=== PATIENT | male | born 1950 | race Caucasian/White ===

== ENCOUNTER 2016-07-08 19:20 | Inpatient (IN) ==
[2016-07-08 20:13] VITALS: BMI 26.2
[2016-07-08] MEDS ORDERED: ZOFRAN 4 MG/2 ML IVP PRN (23:07)
[2016-07-08] MEDS ORDERED: ULTRAM PO PRN (23:27)
[2016-07-08] MEDS ORDERED: HUMALOG SUBCUT PRN (23:29)
[2016-07-08] MEDS ORDERED: IMODIUM PO PRN (23:41)
[2016-07-09] MEDS ORDERED: ZETIA ONE (00:04)
[2016-07-09] MEDS ORDERED: RELAFEN ONE (00:06)
[2016-07-09] MEDS: LANTUS SUBCUT SCH ×2 (00:09→20:48)
[2016-07-09] MEDS ORDERED: RELAFEN PO SCH (08:00)
[2016-07-09] MEDS: ASPIRIN CHEWABLE PO SCH (08:34)
[2016-07-09] MEDS: RANEXA PO SCH ×2 (08:35→20:47)
[2016-07-09] MEDS: COZAAR PO SCH (08:39)
[2016-07-09] MEDS: LOPRESSOR PO SCH (08:39)
[2016-07-09] MEDS: LOVENOX SUBCUT SCH (08:40)
[2016-07-09] MEDS: MULTIVITAMIN PO SCH (08:40)
[2016-07-09] MEDS: RELAFEN PO SCH ×2 (08:41→17:20)
[2016-07-09] MEDS: HYDROCHLOROTHIAZIDE PO SCH (08:42)
[2016-07-09] MEDS: INVANZ 1 GM in SODIUM CHLORIDE 100 ML IV SCH (08:50)
--- NOTE | 2016-07-09 08:55 | DI ---
EXAM: Single view of the chest. History: PICC placement. Comparison: Chest radiograph 06/30/2016 Findings: Heart size is within normal limits. Sternotomy wires. Left PICC seen with tip at the ca voatrial junction. No pneumothorax. No consolidation. No pleural fluid. No acute osseous abnorma lities. Impression: No acute cardiopulmonary process. Left PICC with no pneumothorax.
[2016-07-09] MEDS ORDERED: TESSALON PERLES PO SCH (09:00)
--- NOTE | 2016-07-09 10:26 | RS.OTINEVL ---
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 Home Environment: House, Stairs (few) Medical History: Diabetes Medical History Comments:: MS, DMII, CABG 1999, HTN, Peripheral neuropathy, OA, Endocrine, cataracts. Surgical History Comments:: Surgery to buttocks area. Subjective Information/ Patient Comments:: Pt reports he had surgery in [place] to his buttocks. He reports he is a very active sharlene. - Level of function Prior to this admission, the patient could do the following:: Independent Selfcare, Independent ADL's, Independent Ambulation, Perform Manager Instrumentation/ Cooking, Drive, Participated in Social Activities Outside home, Volunteer/Work Abilities prior to this admission: Independent with all ADLS, and does not use an assistive device. Current Level of Function: Partially Dependent Comments: Pt has fatigue and weakness from the Multiple Sclerosis. Current Equipment Used at Home: glucometer Pain Assessment - Pain Pain Score: 0 Interventions - Objective Patient Orientation: Person, Place, Time, Situation Current Interventions: IV's Observation: Pt is weak and fatigues quickly with activity. Interventions - ROM Right Upper Extremity AROM: WFL's Left Upper Extremity AROM: WFL's - Strength Right Upper Extremity Strength: Mild Weakness Left Upper Extremity Strength: Mild Weakness - Sensation Right Upper Extremity Sensation: Intact/Normal Left Upper Extremity Sensation: Intact/Normal Balance - Sitting Balance Static Sitting Balance: Good Dynamic Sitting Balance: Good - Standing Balance Static Standing Balance: Fair Dynamic Standing Balance: Fair - Comments Balance Assessment Comments: Patient has mild impaired balance. ADL Skills - Self Feeding Self Feeding: Independent - Grooming Grooming: Independent - Bathing Bathing UE: Independent Bathing LE: CGA, Min Assist - Dressing Dressing UE: Independent Dressing LE: Min Assist - Toilet Management Toileting Management: Independent Functional Mobility - Bed Mobility Rolling R/L: Independent Scooting: Independent Supine to Sit: Independent Sit to Supine: Independent - Transfers Sit to Stand: CGA Stand to Sit: Independent Stand Pivot Transfers: CGA - Ambulation Weight Bearing Status: FWB Assistive Device Used: No Assistive Device Assistance needed with Ambulation: CGA - Safety Awareness Safety Awareness: Good Additional Treatment Performed - Time with patient Total treatment time: 25 Activities Patient Interests:: Watching Television Patient Education Patient Education: Education of diagnosis, Home Exercise Program, Education of Plan of Care Teaching Recipient: Patient Teaching Methods: Discussion Assessment Problem List:: Decreased level of function, Requires training/education, Decreased safety/Risk of falls, Weakness Rehab Potential: Good Further Therapy Indicated?: Yes Comments: Patient has fatigue and weakness from the MS. Patient has been in bed trying to get the wounds healed and has become weaker. Short Term Goals - Goals GOAL 1: Pt to increase standing activity to 20 min. to increase standing ADLS. Goal to be met by: 07/16/16 GOAL 2: Pt to be educated with Energy conservation techniques. Goal to be met by: 07/16/16 GOAL 3: Pt to increase BUE strength to 4/5 Goal to be met by: 07/16/16 Alf Goals GOAL 1: Pt to increase his standing activity to 25-30 min. to increase I of ADLS. Goal to be met by: 07/23/16 GOAL 2: Pt to be independent with HEP. Goal to be met by: 07/23/16 GOAL 3: Pt to increase BUE strength to 5/5. Goal to be met by: 07/23/16 Plan Plan of Care: Therapeutic EX, Neuromuscular Re-Educ, Therapeutic Activity, Self- Care/Home Management Frequency of Treatment: 1-2 X day, as tolerated Duration of Treatment: 2 Weeks Anticipated Discharge Destination: Home
[2016-07-09] MEDS: MYLICON PO SCH ×4 (11:14→20:48)
[2016-07-09] MEDS: HUMALOG SUBCUT PRN (16:51)
[2016-07-09] MEDS: VITAMIN C PO SCH (20:47)
[2016-07-09] MEDS: ZINC-220 PO SCH (20:47)
[2016-07-09] MEDS: ZETIA PO SCH (20:47)
[2016-07-10 04:49] LABS: BASOPHILS # (AUTO) 0.1 K/uL (0-0.2); BASOPHILS % (AUTO) 0.9 % (0.0-3.0); EOSINOPHILS # (AUTO) 0.3 K/ul (0.0-0.7); EOSINOPHILS % (AUTO) 3.7 % (0.0-7.0); HEMATOCRIT 29.8 % (42.0-52.0); HEMOGLOBIN 10.2 g/dl (14.0-18.0); IMMATURE GRANULOCYTE % (AUTO) 4.4 % (0.0-5.0); LYMPHOCYTES # (AUTO) 1.7 K/uL (0.60-3.4); LYMPHOCYTES % (AUTO) 19.4 (10.0-50.0); MEAN CORPUSCULAR HEMOGLOBIN 30.6 pg (27.0-31.0); MEAN CORPUSCULAR HGB CONC 34.2 (31.8-35.4); MEAN CORPUSCULAR VOLUME 89.5 fl (80.0-94.0); MONOCYTES # (AUTO) 0.9 K/uL (0.4-2.0); MONOCYTES % (AUTO) 10.6 (0-10); NEUTROPHILS # (AUTO) 5.4 K/ul (2.0-6.9); PLATELET COUNT 384 10^3/uL (140-440); RED BLOOD COUNT 3.33 10^6/ul (4.70-6.10); WHITE BLOOD COUNT 8.85 K/ul (4.2-10.2)
[2016-07-10 05:15] LABS: ALBUMIN 2.5 g/dL (3.4-5.0); ALBUMIN/GLOBULIN RATIO 0.68; ANION GAP 11.9; BILIRUBIN,TOTAL 0.21 mg/dL (0.00-1.20); BUN/CREATININE RATIO 23.52; CALCIUM 9.1 mg/dL (8.2-10.2); CHOL/HDL RATIO 6.4 (4.5-6.4); CREATININE 1.02 mg/dL (0.60-1.10); POTASSIUM 3.9 mmol/L (3.5-5.1); TOTAL PROTEIN 6.2 g/dL (5.8-8.1)
[2016-07-10] MEDS: INVANZ 1 GM in SODIUM CHLORIDE 100 ML IV SCH (09:13)
[2016-07-10] MEDS: LOVENOX SUBCUT SCH (09:13)
[2016-07-10] MEDS: RELAFEN PO SCH ×2 (09:14→17:08)
[2016-07-10] MEDS: ASPIRIN CHEWABLE PO SCH (09:14)
[2016-07-10] MEDS: RANEXA PO SCH ×2 (09:14→20:56)
[2016-07-10] MEDS: COZAAR PO SCH (09:15)
[2016-07-10] MEDS: HYDROCHLOROTHIAZIDE PO SCH (09:15)
[2016-07-10] MEDS: VITAMIN C PO SCH ×2 (09:15→20:56)
[2016-07-10] MEDS: ZINC-220 PO SCH ×2 (09:15→20:56)
[2016-07-10] MEDS: LOPRESSOR PO SCH (09:15)
[2016-07-10] MEDS: MYLICON PO SCH ×4 (09:16→20:56)
[2016-07-10] MEDS: MULTIVITAMIN PO SCH (09:16)
[2016-07-10] MEDS: ZETIA PO SCH (09:31)
--- NOTE | 2016-07-10 10:59 | PN ---
DATE OF VISIT: 07/09/16 The patient today is alert and in no distress with a good color. He had no specific complaints. When I did see him at noon or close to 1 p.m., the patient told me that his dressing had not been changed or packing. So I contacted the nurse and discussed the case with Brandie, the nurse cargo supervisor. I told her that the patient's dressing has to be changed three times a day as ordered at the time of discharge. I would like to have a picture of the cavity after the packing was removed and it should be repacked with 1/4 inch Iodoform. I felt that the position would be better if the patient is in a prone position with his butt elevated with at least two to three pillows underneath his abdomen. VITAL SIGNS: Temperature at 5:26 a.m. was 96.6, pulse 54, blood pressure 151/63 , respiratory rate 16, oxygen saturation 94 at room air. LUNGS: Clear. HEART: Normal sinus rhythm and unchanged from yesterday. Procalcitonin 0.09. Will order a CBC and CMP tomorrow, as well as urinalysis. [facility]
--- NOTE | 2016-07-10 11:15 | RS.PTINEVL ---
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 Home Environment: House, Stairs (few) Medical History: Diabetes Medical History Comments:: MS, DMII, CABG 1999, HTN, Peripheral neuropathy, OA, Endocrine, cataracts. Surgical History Comments:: Surgery to buttocks area. Subjective Information/ Patient Comments:: Patient states he recently had rehab for leg strengthening due to a flare up of MS. States he has been ambulating to the bathroom by himself. States he has been cautious with mobility. - Level of function Prior to this admission, the patient could do the following:: Independent Selfcare, Independent ADL's, Independent Ambulation, Perform Threading Machine Feeder Automatic/ Cooking, Drive, Participated in Social Activities Outside home, Volunteer/Work Current Equipment Used at Home: glucometer Interventions - Objective Patient Orientation: Person, Place, Time, Situation Current Interventions: IV's Range of Motion - ROM Right Upper Extremity AROM: WFL's Left Upper Extremity AROM: WFL's Right Lower Extremity AROM: WFL's Left Lower Extremity AROM: WFL's Muscle Strength - Muscle Strength Right Lower Extremity Strength: Mild Weakness Left Lower Extremity Strength: Mild Weakness Comments:: No functional deficits with LE weakness. Balance - Sitting Balance and Reactions Static Sitting Balance: Good Dynamic Sitting Balance: Good - Standing Balance and Reactions Static Standing Balance: Good (-) Dynamic Standing Balance: Good (-) Functional Mobility - Bed Mobility Supine to Sit: Independent Sit to Supine: Independent - Transfers Sit to Stand: Independent Stand to Sit: Independent Stand Pivot Transfers: Independent, Supervision, 1 person assist - Safety Awareness Safety Awareness: Good Ambulation - Ambulation Weight Bearing Status: FWB Assistive Device Used: No Assistive Device Orthotic/Prosthetic Device: No Distance: 150 feet Assistance needed with Ambulation: Supervision Quality of Ambulation: Patient demonstrates consistent clearing of both feet. Demonstrates a slight wide base of support. Exhibits good heel strike and toe off. Patient ambulated in non-skid socks and demonstrated no loss of balance or unsteadiness. Treatment time - Time with patient Total treatment time: 16 (mins) Assessment - Assessment Further Therapy Indicated?: No Comments: Patient is up ad jadyn in the room to go to the bathroom. He is independent with bed mobility and transfers. He demonstrates high functioning gait that does not required skilled assistance. He will benefit from ambulation with nursing or family to maintain his level of function. Plan Duration of Treatment: One Time Treatment Anticipated Discharge Destination: Home
[2016-07-10] MEDS: HUMALOG SUBCUT PRN ×2 (11:50→17:09)
[2016-07-10] MEDS: LANTUS SUBCUT SCH (20:56)
[2016-07-11] MEDS: LOVENOX SUBCUT SCH (08:37)
[2016-07-11] MEDS: INVANZ 1 GM in SODIUM CHLORIDE 100 ML IV SCH (08:37)
[2016-07-11] MEDS: MULTIVITAMIN PO SCH (08:38)
[2016-07-11] MEDS: ZETIA PO SCH (08:38)
[2016-07-11] MEDS: RANEXA PO SCH ×2 (08:38→21:19)
[2016-07-11] MEDS: HYDROCHLOROTHIAZIDE PO SCH (08:38)
[2016-07-11] MEDS: VITAMIN C PO SCH ×2 (08:38→21:20)
[2016-07-11] MEDS: COZAAR PO SCH (08:38)
[2016-07-11] MEDS: ZINC-220 PO SCH ×2 (08:38→21:20)
[2016-07-11] MEDS: MYLICON PO SCH ×4 (08:39→21:20)
[2016-07-11] MEDS: ASPIRIN CHEWABLE PO SCH (08:39)
[2016-07-11] MEDS: LOPRESSOR PO SCH (08:39)
--- NOTE | 2016-07-11 11:13 | HP ---
CHIEF COMPLAINT: The patient was admitted 07/08/16 from [facility] as a Transitional Care patient. SOURCE OF HISTORY: Records from [facility] and patient. 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 He rides horses and last fall of 2015 he developed a lesion or an area in the right upper posterior thigh bordering the buttock that spontaneously drained and resolved. The patient about two months ago developed an area in the coccyx that was raised, tender and painful that drains continuously a day or two prior to his doctor's appointment for the problem. No medication or surgical manipulation was done. The area seemed to have healed until 06/28/2016 and by 06/30/16 the patient developed fever, shaking chills and prompting a visit to the emergency room. Incision and drainage was done at the emergency room prior to admission, plus culture. The patient on 07/01/2016 was seen by a surgeon and further incision and drainage was done in the area of the coccyx. He developed another area that was red and raised and tender on 07/02/2016 in the left lower buttock. This also was then incised and drained by the surgeon. The areas were packed with 1/2 inch Iodoform. The patient did receive Vancomycin with Zosyn. The patient upon discharge however was placed on Ertapenem. This patient is admitted to this facility for continued IV medication and also change of dressing ordered three times a day including the packing. PAST PERSONAL HISTORY: The patient had coronary artery disease and did undergo coronary bypass in 1998. The patient during that time was found to have diabetes and had been diabetic since. He had been on Insulin about 10 years now. He had no other operations. He had been taking Nabumetone for some time because of swelling and pain in the fingers and hands, as well as joints, meaning elbow and knees. He had cataract extractions with implants. FAMILY HISTORY: Father had diabetes mellitus, as well sister and brother. The patient had a very significant malignancy history in the family consisting of brother who of multiple myeloma, probably. Sister with pancreatic carcinoma and two sisters with breast carcinoma. He has a brother that seemingly has no malignancies uncovered. He is the youngest of the family. 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 His of lung carcinoma and was a smoker. He never did smoke and only used alcoholic beverages very occasionally. He had a colonoscopy about 5-7 years ago and endoscopy more than 10 years ago. MEDICATIONS: Prior to admission to this facility. Multivitamin capsule one daily Tramadol 50 mg tablet every four hours prn Probiotic on capsule twice a day Relafen 750 mg twice a day Tessalon Perles 100 mg capsule three times a day Ranexa 500 mg tablet twice daily Cozaar 100 mg tablet daily Insulin Lispro/Humalog 100 units per cc, two to four times a day Hydrochlorothiazide 25 mg daily Ertapenem 1 gram daily IV Lovenox 40 mg daily Lopressor 25 mg daily Lantus 22 units subcutaneously at bedtime Mylicon 80 chewable pc and hs, instead of ac and hs Aspirin 81 mg daily Zofran 4 mg IV every 6 hours prn Loperamide 2 mg capsule every 4 hours prn Zinc Gluconate 100 mg tablet, 380 mg daily ALLERGIES: Crestor REVIEW OF SYSTEMS: CONSTITUTIONAL: The patient is alert, oriented, afebrile, no chills now and appears well. Not dyspneic, nor tachypneic. LIVESTOCK HAULIER: No headaches, no ataxia, no weakness of the extremities. VISUAL: Denies any double vision, blurred vision or transient loss of vision. AUDITORY: The patient's hearing is good. He denies any pain, tinnitus or drainage. CARDIOVASCULAR: The patient denies any chest pain or chest tightness or chest heaviness. GASTROINTESTINAL: The appetite seemed to have improved and eating about 100% of the meals. GENITOURINARY: Denies any pain, frequency or urgency of urination. The patient denies any change in his bowl habits during this episode. MUSCULOSKELETAL: The patient does experience pain and swelling of the fingers, more so in the morning and also knee pain. INTEGUMENT: The patient does have three areas or cavities in the thigh, left, the border of the buttocks in the right at the lowest portion of the buttocks and then coccyx. Minimal redness and no significant surrounding induration. ENDOCRINE: The patient has no polyuria, polydipsia, although he is diabetic and using Insulin. HEMATOLOGIC: No history of prolonged bleeding. PSYCHIATRIC: Affect is normal. PHYSICAL EXAMINATION: GENERAL: We have a 65 year old male who is alert, oriented times four , not dyspneic, nor tachypneic and appears generally well. He is ambulatory. VITAL SIGNS: On admission at 7:49 p.m. on 07/08/16, temperature 98.2, pulse 64, blood pressure 146/66, respiratory rate 16, oxygen saturation 96 at room air. HEAD: Unremarkable. FACE: Symmetrical and equal with no facial weakness. No remarkable tenderness in the frontal or maxillary sinus areas to palpation under pressure. EYES: Pupils equal/reactive to light about 3 mm in size. Conjunctivae slightly pale. Sclerae not icteric. MOUTH: Unremarkable. THROAT: No inflammation, tumors or exudate. NECK: No masses. No bruit. No tenderness. No venous distention at supine posture. CHEST: Essentially symmetrical and equal with good expansion. No remarkable tenderness. A scar from the median sternotomy. LUNGS: Breath sounds are heard in both sides. No rales or wheezing. HEART: Audible and regular with good tones. No murmurs. ABDOMEN: Flat, soft with no remarkable tenderness. No guarding. Bowel sounds are active. No masses palpable and no bruit. EXTERNAL GENITALIA: Not examined. LOWER EXTREMITIES: Symmetrical and equal with no ankle edema. Anterior tibials are present. No tenderness in the calf muscles. The patient in prone position is noted to have the areas in the left lower buttocks and then right in the lower buttocks, as well as the coccyx packed with 1/4 inch Iodoform with no drainage noted. UPPER EXTREMITIES: Symmetrical and equal. ASSESSMENT: 1. ABSCESS COCCYX INCISED AND DRAINED 2. ABSCESS RIGHT AND LEFT LOWER BUTTOCKS INCISED AND DRAINED 3. FEBRILE CONDITION RESOLVED WITH PROBABLE BACTEREMIA, BUT WITH NEGATIVE CULTURE OF THE WOUND 4. DIABETES MELLITUS INSULIN DEPENDENT FOR 14 YEARS, DIAGNOSED 1998. 5. CORONARY ARTERY DISEASE, STATUS POST BYPASS 1998 6. HISTORY OF MS ON MEDICATION, HELD SINCE 07/01/16 7. PERIPHERAL ARTERIAL DISEASE WITH ABSENT POSTERIOR TIBIALS 8. PAIN IN FINGERS OF BOTH HANDS AND KNEES, PROBABLY DEGENERATIVE JOINT DISEASE 9. HYPERTENSION 10. MODERATE ANEMIA 11. HISTORY OF PREPONDERANT MALIGNANCY IN THE FAMILY, FATHER AND FOUR SIBLINGS MTDD
[2016-07-11] MEDS: HUMALOG SUBCUT PRN ×2 (11:22→18:34)
--- NOTE | 2016-07-11 13:01 | PN ---
DATE OF VISIT: 07/10/16 The patient is alert and oriented times four. Not dyspneic, nor tachypneic with good color and good mobility. This patient has MS, but he has good movement and no muscular aching that he is complaining of. He does complain of joint pains. NECK: No masses, no bruit. LUNGS: Clear to auscultation after several deep breaths. There is fine rales at the left base. This disappears after taking several deep breaths. HEART: Audible and regular with good tones. ABDOMEN: Unremarkable. The area in the buttocks and coccyx has minimal redness at the rim of the cavities. The CBC showed moderate anemia with hemoglobin of 10, hematocrit 29.8, MCV 89.5 and MCH 30.6, immature granulocytes 0.4, but it was high on admission at [facility]. The WBC is normal at 8.85. Electrolytes were normal. CO2 normal. BUN slightly elevated at 24, creatinine 1.02, E GFR 73. Blood sugar fasting 88 , A1C 6.7. Albumin is low at 2.5. Triglycerides 144, cholesterol 153, LDL cholesterol 100, VLDL 29, HDL cholesterol 24, ratio 6.4. Procalcitonin on admission was normal at 0.09. I did inform the patient that I will try to get in touch with the surgeon as to when they would expect to see him at his office and also when did they expect to continue his antibiotic treatment. STAR
[2016-07-11] MEDS: LANTUS SUBCUT SCH (21:20)
[2016-07-12] MEDS: ASPIRIN CHEWABLE PO SCH (08:50)
[2016-07-12] MEDS: VITAMIN C PO SCH ×2 (09:05→20:36)
[2016-07-12] MEDS: COZAAR PO SCH (09:05)
[2016-07-12] MEDS: MULTIVITAMIN PO SCH (09:06)
[2016-07-12] MEDS: LOPRESSOR PO SCH (09:06)
[2016-07-12] MEDS: ZETIA PO SCH (09:06)
[2016-07-12] MEDS: ZINC-220 PO SCH ×2 (09:06→20:35)
[2016-07-12] MEDS: HYDROCHLOROTHIAZIDE PO SCH (09:06)
[2016-07-12] MEDS: MYLICON PO SCH ×4 (09:06→20:36)
[2016-07-12] MEDS: INVANZ 1 GM in SODIUM CHLORIDE 100 ML IV SCH (09:06)
[2016-07-12] MEDS: RANEXA PO SCH ×2 (09:06→20:36)
[2016-07-12] MEDS: LOVENOX SUBCUT SCH (09:07)
[2016-07-12] MEDS: HUMALOG SUBCUT PRN ×2 (11:53→17:32)
[2016-07-12] MEDS: LANTUS SUBCUT SCH (20:36)
[2016-07-13 05:28] LABS: BASOPHILS # (AUTO) 0.1 K/uL (0-0.2); BASOPHILS % (AUTO) 1.1 % (0.0-3.0); EOSINOPHILS # (AUTO) 0.3 K/ul (0.0-0.7); HEMATOCRIT 30.6 % (42.0-52.0); HEMOGLOBIN 10.5 g/dl (14.0-18.0); IMMATURE GRANULOCYTE % (AUTO) 1.8 % (0.0-5.0); LYMPHOCYTES # (AUTO) 1.7 K/uL (0.60-3.4); LYMPHOCYTES % (AUTO) 20.4 (10.0-50.0); MEAN CORPUSCULAR HEMOGLOBIN 30.6 pg (27.0-31.0); MEAN CORPUSCULAR HGB CONC 34.3 (31.8-35.4); MEAN CORPUSCULAR VOLUME 89.2 fl (80.0-94.0); MONOCYTES # (AUTO) 0.8 K/uL (0.4-2.0); NEUTROPHILS # (AUTO) 5.3 K/ul (2.0-6.9); NEUTROPHILS % (AUTO) 63.7; PLATELET COUNT 402 10^3/uL (140-440); RED BLOOD COUNT 3.43 10^6/ul (4.70-6.10); WHITE BLOOD COUNT 8.24 K/ul (4.2-10.2)
[2016-07-13 06:21] LABS: ALBUMIN 3.5 g/dL (3.4-5.0); ALBUMIN/GLOBULIN RATIO 1.13; ANION GAP 9.9; BILIRUBIN,TOTAL 0.4 mg/dL (0.00-1.20); CALCIUM 8.9 mg/dL (8.2-10.2); POTASSIUM 3.9 mmol/L (3.5-5.1); TOTAL PROTEIN 6.6 g/dL (5.8-8.1)
[2016-07-13] MEDS: RANEXA PO SCH ×2 (08:43→21:11)
[2016-07-13] MEDS: HYDROCHLOROTHIAZIDE PO SCH (08:43)
[2016-07-13] MEDS: ASPIRIN CHEWABLE PO SCH (08:43)
[2016-07-13] MEDS: MULTIVITAMIN PO SCH (08:43)
[2016-07-13] MEDS: ZETIA PO SCH (08:43)
[2016-07-13] MEDS: ZINC-220 PO SCH ×2 (08:43→21:11)
[2016-07-13] MEDS: LOPRESSOR PO SCH (08:44)
[2016-07-13] MEDS: LOVENOX SUBCUT SCH (08:44)
[2016-07-13] MEDS: COZAAR PO SCH (08:44)
[2016-07-13] MEDS: MYLICON PO SCH ×4 (08:44→21:11)
[2016-07-13] MEDS: VITAMIN C PO SCH ×2 (08:44→21:11)
[2016-07-13] MEDS: INVANZ 1 GM in SODIUM CHLORIDE 100 ML IV SCH (08:45)
[2016-07-13] MEDS: HUMALOG SUBCUT PRN ×3 (11:57→21:09)
[2016-07-13] MEDS: LANTUS SUBCUT SCH (21:10)
[2016-07-14] MEDS: INVANZ 1 GM in SODIUM CHLORIDE 100 ML IV SCH (08:57)
[2016-07-14] MEDS: ZETIA PO SCH (08:58)
[2016-07-14] MEDS: RANEXA PO SCH ×2 (08:58→21:43)
[2016-07-14] MEDS: MYLICON PO SCH ×4 (08:58→21:43)
[2016-07-14] MEDS: HYDROCHLOROTHIAZIDE PO SCH (08:59)
[2016-07-14] MEDS: MULTIVITAMIN PO SCH (08:59)
[2016-07-14] MEDS: VITAMIN C PO SCH ×2 (08:59→21:43)
[2016-07-14] MEDS: ASPIRIN CHEWABLE PO SCH (08:59)
[2016-07-14] MEDS: ZINC-220 PO SCH ×2 (08:59→21:43)
[2016-07-14] MEDS: LOPRESSOR PO SCH (08:59)
[2016-07-14] MEDS: LOVENOX SUBCUT SCH (08:59)
[2016-07-14] MEDS: COZAAR PO SCH (09:04)
[2016-07-14] MEDS: HUMALOG SUBCUT PRN ×3 (11:38→21:42)
[2016-07-14] MEDS: LANTUS SUBCUT SCH (21:42)
[2016-07-15 04:51] LABS: ALBUMIN 2.9 g/dL (3.4-5.0); ALBUMIN/GLOBULIN RATIO 0.81; ANION GAP 12.4; BILIRUBIN,TOTAL 0.21 mg/dL (0.00-1.20); BUN/CREATININE RATIO 30.47; CALCIUM 9.2 mg/dL (8.2-10.2); CREATININE 1.05 mg/dL (0.60-1.10); POTASSIUM 4.4 mmol/L (3.5-5.1); TOTAL PROTEIN 6.5 g/dL (5.8-8.1)
[2016-07-15] MEDS: MYLICON PO SCH ×4 (08:15→20:35)
[2016-07-15] MEDS: ZETIA PO SCH (08:15)
[2016-07-15] MEDS: INVANZ 1 GM in SODIUM CHLORIDE 100 ML IV SCH (08:15)
[2016-07-15] MEDS: VITAMIN C PO SCH ×2 (08:15→20:35)
[2016-07-15] MEDS: ASPIRIN CHEWABLE PO SCH (08:15)
[2016-07-15] MEDS: ZINC-220 PO SCH ×2 (08:16→20:35)
[2016-07-15] MEDS: RANEXA PO SCH ×2 (08:16→20:35)
[2016-07-15] MEDS: MULTIVITAMIN PO SCH (08:16)
[2016-07-15] MEDS: LOPRESSOR PO SCH (08:17)
[2016-07-15] MEDS: HYDROCHLOROTHIAZIDE PO SCH (08:18)
[2016-07-15] MEDS: COZAAR PO SCH (08:18)
[2016-07-15] MEDS: LOVENOX SUBCUT SCH (08:18)
[2016-07-15] MEDS: HUMALOG SUBCUT PRN ×2 (11:24→17:33)
[2016-07-15] MEDS: LANTUS SUBCUT SCH (20:36)
[2016-07-16] MEDS: INVANZ 1 GM in SODIUM CHLORIDE 100 ML IV SCH (08:47)
[2016-07-16] MEDS: ASPIRIN CHEWABLE PO SCH (08:47)
[2016-07-16] MEDS: RANEXA PO SCH ×2 (08:58→20:46)
[2016-07-16] MEDS: MULTIVITAMIN PO SCH (08:59)
[2016-07-16] MEDS: MYLICON PO SCH ×4 (08:59→20:46)
[2016-07-16] MEDS: ZINC-220 PO SCH ×2 (08:59→20:46)
[2016-07-16] MEDS: VITAMIN C PO SCH ×2 (08:59→20:46)
[2016-07-16] MEDS: ZETIA PO SCH (08:59)
[2016-07-16] MEDS: LOPRESSOR PO SCH (09:00)
[2016-07-16] MEDS: HYDROCHLOROTHIAZIDE PO SCH (09:00)
[2016-07-16] MEDS: LOVENOX SUBCUT SCH (09:01)
[2016-07-16] MEDS: COZAAR PO SCH (09:02)
--- NOTE | 2016-07-16 11:22 | PN ---
DATE OF VISIT: 07/12/2016 The patient is alert and oriented times four and feeling good. He does look good. He had been afebrile throughout his hospital stay after this day. VITAL SIGNS: His temperature of 5:14 p.m. was 97.8, pulse 56, blood pressure 109/63, respiratory rate 20, oxygen saturation on room air 97. LUNGS: Clear to auscultation in both sides. No rales or wheezing. HEART: Audible and regular with good tones. No murmurs. ASSESSMENT: Multiple ulcerations of right and left buttocks, plus coccyx with positive blood culture and he is receiving Ertapenem 1 gram daily. He also gets a change of dressing three times a day. No significant induration around the ulceration. MTDD
--- NOTE | 2016-07-16 11:28 | PN ---
DATE OF VISIT: 07/13/16 The patient is alert and oriented times four. Not dyspneic, nor tachypneic. GENERAL APPEARANCE: Good. VITAL SIGNS: At 5:33 p.m. on 07/13/16 showed a temperature 97.6 oral, pulse 52 , blood pressure 134/62, respiratory rate 18, oxygen saturation 98 at room air. LUNGS: Clear to auscultation in both sides. HEART: Audible and regular with good tones. ABDOMEN: Flat, soft. Bowel sounds are active. The wound was inspected and palpated with sterile gloves. There are no purulent areas now. The induration of the wound edges is minimal. I do think that the patient is doing well. However, the length of the Ertapenem medication is questionable. I need to look at the ID for recommendations. CONDITION: Stable. MTDD
--- NOTE | 2016-07-16 11:35 | PN ---
DATE OF VISIT: 07/14/16 The patient is alert and cheerful. He is in no distress and he had a good color. He has no specific complaints. No significant pain. He had been afebrile ever since he was admitted. VITAL SIGNS: On 07/14/2016 at 5:41 p.m. showed a temperature of 97.8, pulse 64 , blood pressure 138/70, respiratory rate 18, oxygen saturation on room air 97. LUNGS: Clear to auscultation. HEART: Audible and regular with good tones. ABDOMEN: Soft and nontender. The wound was not inspected. I did tell him that I felt like maybe he can go home, but we need to make arrangements for the changes of dressing and IV. He has an appointment with the surgeon on the I & D on 07/23/2016. There are no arrangements made for him to get the medication at home, as well as the packing that he may have to stay here until his day of follow up with the surgeon and infectious disease MDonnie GRAVES
--- NOTE | 2016-07-16 11:44 | PN ---
DATE OF VISIT: 07/15/16 The patient is alert and doing well. No distress with good color and feels good. I did see him about 1 p.m. VITAL SIGNS: During that time available was at 5:26 a.m. with a temperature of 97.3, pulse 51, blood pressure 107/54, respiratory rate 16, oxygen saturation 97 on room air. I did inform him that I had reviewed the records and the infectious disease specialist would like to continue his Ertapenem for about 28 days. This is now day 12 for the medication. He has an appointment to the ID specialist, as well as the surgeon on 07/23/2016. I told him that if he is going home the logistical problem for changing the dressing three times is probably not obtainable and also the IV medication being given daily for 7 days out of 7 days is probably also difficult. I did tell him that I would discuss that with both of the doctors and see what they have to tell me before I would plan on discharging him. If we cannot find an alternative and the plan of follow up on 07/23/2016 would probably be followed through and probably either discharge him after the follow up or before the follow up appointment. I had not had a chance to talk to the doctors today and will try to do that tomorrow morning. STAR
[2016-07-16] MEDS: HUMALOG SUBCUT PRN ×2 (12:13→17:21)
[2016-07-16] MEDS: LANTUS SUBCUT SCH (20:47)
[2016-07-17] MEDS: ZINC-220 PO SCH ×2 (08:02→20:56)
[2016-07-17] MEDS: LOVENOX SUBCUT SCH (08:02)
[2016-07-17] MEDS: VITAMIN C PO SCH ×2 (08:02→20:56)
[2016-07-17] MEDS: ASPIRIN CHEWABLE PO SCH (08:02)
[2016-07-17] MEDS: MULTIVITAMIN PO SCH (08:02)
[2016-07-17] MEDS: ZETIA PO SCH (08:02)
[2016-07-17] MEDS: RANEXA PO SCH ×2 (08:02→20:56)
[2016-07-17] MEDS: INVANZ 1 GM in SODIUM CHLORIDE 100 ML IV SCH (08:03)
[2016-07-17] MEDS: COZAAR PO SCH (08:03)
[2016-07-17] MEDS: HYDROCHLOROTHIAZIDE PO SCH (08:04)
[2016-07-17] MEDS: LOPRESSOR PO SCH (08:04)
[2016-07-17] MEDS: MYLICON PO SCH ×4 (08:13→20:56)
[2016-07-17] MEDS: HUMALOG SUBCUT PRN (10:57)
[2016-07-17] MEDS: LANTUS SUBCUT SCH (20:56)
[2016-07-18] MEDS: COZAAR PO SCH (08:07)
[2016-07-18] MEDS: RANEXA PO SCH ×2 (08:07→20:31)
[2016-07-18] MEDS: LOVENOX SUBCUT SCH (08:07)
[2016-07-18] MEDS: MULTIVITAMIN PO SCH (08:08)
[2016-07-18] MEDS: HYDROCHLOROTHIAZIDE PO SCH (08:08)
[2016-07-18] MEDS: ZETIA PO SCH (08:08)
[2016-07-18] MEDS: ASPIRIN CHEWABLE PO SCH (08:08)
[2016-07-18] MEDS: ZINC-220 PO SCH ×2 (08:08→20:31)
[2016-07-18] MEDS: MYLICON PO SCH ×4 (08:08→20:31)
[2016-07-18] MEDS: VITAMIN C PO SCH ×2 (08:08→20:31)
[2016-07-18] MEDS: LOPRESSOR PO SCH (08:09)
[2016-07-18] MEDS: INVANZ 1 GM in SODIUM CHLORIDE 100 ML IV SCH (08:10)
[2016-07-18] MEDS: HUMALOG SUBCUT PRN ×2 (11:15→21:41)
[2016-07-18] MEDS: LANTUS SUBCUT SCH (20:32)
[2016-07-19] MEDS: VITAMIN C PO SCH ×2 (08:45→20:18)
[2016-07-19] MEDS: COZAAR PO SCH ×2 (08:45→08:50)
[2016-07-19] MEDS: ASPIRIN CHEWABLE PO SCH (08:45)
[2016-07-19] MEDS: MYLICON PO SCH ×4 (08:46→20:18)
[2016-07-19] MEDS: LOPRESSOR PO SCH (08:46)
[2016-07-19] MEDS: LOVENOX SUBCUT SCH (08:46)
[2016-07-19] MEDS: ZETIA PO SCH (08:46)
[2016-07-19] MEDS: MULTIVITAMIN PO SCH (08:46)
[2016-07-19] MEDS: HYDROCHLOROTHIAZIDE PO SCH (08:46)
[2016-07-19] MEDS: INVANZ 1 GM in SODIUM CHLORIDE 100 ML IV SCH (08:46)
[2016-07-19] MEDS: ZINC-220 PO SCH ×2 (08:46→20:18)
[2016-07-19] MEDS: RANEXA PO SCH ×2 (08:46→20:18)
[2016-07-19] MEDS: HUMALOG SUBCUT PRN ×2 (12:04→20:16)
[2016-07-19] MEDS: LANTUS SUBCUT SCH (20:17)
[2016-07-20] MEDS: INVANZ 1 GM in SODIUM CHLORIDE 100 ML IV SCH (08:46)
[2016-07-20] MEDS: LOVENOX SUBCUT SCH (08:49)
[2016-07-20] MEDS: ASPIRIN CHEWABLE PO SCH (08:51)
[2016-07-20] MEDS: RANEXA PO SCH ×2 (08:51→20:30)
[2016-07-20] MEDS: COZAAR PO SCH (08:52)
[2016-07-20] MEDS: HYDROCHLOROTHIAZIDE PO SCH (08:52)
[2016-07-20] MEDS: LOPRESSOR PO SCH (08:52)
[2016-07-20] MEDS: ZETIA PO SCH (08:52)
[2016-07-20] MEDS: ZINC-220 PO SCH ×2 (08:52→20:29)
[2016-07-20] MEDS: VITAMIN C PO SCH ×2 (08:52→20:29)
[2016-07-20] MEDS: MYLICON PO SCH ×4 (08:53→20:29)
[2016-07-20] MEDS: MULTIVITAMIN PO SCH (08:53)
[2016-07-20] MEDS: HUMALOG SUBCUT PRN ×2 (11:04→17:36)
[2016-07-20] MEDS: LANTUS SUBCUT SCH (20:30)
[2016-07-21 07:12] LABS: BASOPHILS # (AUTO) 0.1 K/uL (0-0.2); BASOPHILS % (AUTO) 1.4 % (0.0-3.0); EOSINOPHILS # (AUTO) 0.3 K/ul (0.0-0.7); HEMATOCRIT 34.8 % (42.0-52.0); HEMOGLOBIN 11.8 g/dl (14.0-18.0); IMMATURE GRANULOCYTE % (AUTO) 0.4 % (0.0-5.0); LYMPHOCYTES # (AUTO) 1.8 K/uL (0.60-3.4); LYMPHOCYTES % (AUTO) 32.3 (10.0-50.0); MEAN CORPUSCULAR HEMOGLOBIN 30.2 pg (27.0-31.0); MEAN CORPUSCULAR HGB CONC 33.9 (31.8-35.4); MONOCYTES # (AUTO) 0.6 K/uL (0.4-2.0); MONOCYTES % (AUTO) 11.2 (0-10); NEUTROPHILS # (AUTO) 2.8 K/ul (2.0-6.9); NEUTROPHILS % (AUTO) 49.7; PLATELET COUNT 303 10^3/uL (140-440); RED BLOOD COUNT 3.91 10^6/ul (4.70-6.10); WHITE BLOOD COUNT 5.64 K/ul (4.2-10.2)
[2016-07-21 07:31] LABS: ALBUMIN 3.3 g/dL (3.4-5.0); ALBUMIN/GLOBULIN RATIO 0.85; ANION GAP 10.2; BILIRUBIN,TOTAL 0.42 mg/dL (0.00-1.20); BUN/CREATININE RATIO 23.58; CALCIUM 9.7 mg/dL (8.2-10.2); CREATININE 1.06 mg/dL (0.60-1.10); POTASSIUM 4.2 mmol/L (3.5-5.1); TOTAL PROTEIN 7.2 g/dL (5.8-8.1)
[2016-07-21 07:54] LABS: ESR INTERNAL QC INTERNAL QC VALID
[2016-07-21 07:55] LABS: ERYTHROCYTE SEDIMENTATION RATE 54 mm/hr (0-15)
[2016-07-21] MEDS: LOVENOX SUBCUT SCH (08:50)
[2016-07-21] MEDS: HYDROCHLOROTHIAZIDE PO SCH (08:51)
[2016-07-21] MEDS: MULTIVITAMIN PO SCH (08:51)
[2016-07-21] MEDS: ZINC-220 PO SCH ×2 (08:51→20:43)
[2016-07-21] MEDS: COZAAR PO SCH (08:51)
[2016-07-21] MEDS: RANEXA PO SCH ×2 (08:51→20:44)
[2016-07-21] MEDS: LOPRESSOR PO SCH (08:52)
[2016-07-21] MEDS: INVANZ 1 GM in SODIUM CHLORIDE 100 ML IV SCH (08:52)
[2016-07-21] MEDS: VITAMIN C PO SCH ×2 (08:52→20:44)
[2016-07-21] MEDS: MYLICON PO SCH ×4 (08:52→20:43)
[2016-07-21] MEDS: ASPIRIN CHEWABLE PO SCH (08:52)
[2016-07-21] MEDS: ZETIA PO SCH (08:52)
[2016-07-21] MEDS: HUMALOG SUBCUT PRN ×2 (11:46→17:16)
[2016-07-21] MEDS: LANTUS SUBCUT SCH (20:45)
[2016-07-22] MEDS: INVANZ 1 GM in SODIUM CHLORIDE 100 ML IV SCH (08:18)
[2016-07-22] MEDS: ASPIRIN CHEWABLE PO SCH (08:41)
[2016-07-22] MEDS: HYDROCHLOROTHIAZIDE PO SCH (08:42)
[2016-07-22] MEDS: COZAAR PO SCH (08:42)
[2016-07-22] MEDS: LOVENOX SUBCUT SCH (08:43)
[2016-07-22] MEDS: LOPRESSOR PO SCH (08:43)
[2016-07-22] MEDS: VITAMIN C PO SCH ×2 (08:44→21:08)
[2016-07-22] MEDS: ZETIA PO SCH (08:44)
[2016-07-22] MEDS: RANEXA PO SCH ×2 (08:44→21:07)
[2016-07-22] MEDS: MYLICON PO SCH ×4 (08:44→21:07)
[2016-07-22] MEDS: MULTIVITAMIN PO SCH (08:44)
[2016-07-22] MEDS: ZINC-220 PO SCH ×2 (08:45→21:08)
[2016-07-22] MEDS: HUMALOG SUBCUT PRN ×2 (11:07→17:28)
[2016-07-22] MEDS: LANTUS SUBCUT SCH (21:08)
[2016-07-23 04:30] VITALS: BP 114/62; TEMP 98
[2016-07-23] MEDS ORDERED: INVANZ 1 GM in SODIUM CHLORIDE 100 ML IV SCH (06:00)
[2016-07-23] MEDS: MULTIVITAMIN PO SCH (08:37)
[2016-07-23] MEDS: LOVENOX SUBCUT SCH (08:37)
[2016-07-23] MEDS: LOPRESSOR PO SCH (08:38)
[2016-07-23] MEDS: MYLICON PO SCH (08:38)
[2016-07-23] MEDS: HYDROCHLOROTHIAZIDE PO SCH (08:38)
[2016-07-23] MEDS: VITAMIN C PO SCH (08:38)
[2016-07-23] MEDS: ASPIRIN CHEWABLE PO SCH (08:38)
[2016-07-23] MEDS: COZAAR PO SCH (08:38)
[2016-07-23] MEDS: RANEXA PO SCH (08:38)
[2016-07-23] MEDS: ZETIA PO SCH (08:38)
[2016-07-23] MEDS: ZINC-220 PO SCH (08:38)
--- NOTE | 2016-07-23 11:25 | PN ---
DATE OF VISIT: 07/16/16 SUBJECTIVE: The patient is alert and oriented times 4 and cheerful with good color and no distress. He is mobile without any particular restrictions of any. Vital signs at 6:00 in the evening showed a temperature of 97.4, pulse 55, blood pressure 111/62, respiratory rate 18 and oxygen saturation 99%. I had called Dr. Villela the surgeon in [place] who did the incision and drainage to the abscess. I did tell about the desire of the patient to go home. I also did inform him that the wound looks clean and no significant induration around the ulcers. He however wanted to continue the dressing three times a day and the antibiotics according to Dr. Melendez should be continued for a total of 28 days and he was on day 12 today 07/16/16. It is felt that the patient should stay here until 07/23/16 when he has an appointment with Dr. Melendez the ID specialist and him. I communicated this conversation with the patient. I told him that he would have an intervenous medication daily and I'm not certain whither that is logistically possible and a change of dressing three times a day. The home health don't believe would be able to do that. STAR
--- NOTE | 2016-07-30 15:26 | PN ---
DATE OF VISIT: 07/22/16 SUBJECTIVE: The patient is alert, oriented times four, not dyspneic or tachypneic. VITAL SIGNS: Pulse 56, blood pressure 116/58, respiratory rate 16, oxygen saturation 98 at room air, temperature recorded except early in the morning hours 97.1. This patient is going to be discharged tomorrow to see the Dr. Villela and Dr. Frederick. Discharge him in the morning to go to those doctor offices. Further instructions will be coming from them. STAR
--- NOTE | 2016-07-30 15:34 | PN ---
DATE OF VISIT: 07/21/16 SUBJECTIVE: The patient today is alert, oriented times four not dyspneic or tachypneic. No specific complaints. He claimed that he is doing well and indeed he looks well. VITALS: Temperature 98.2, pulse 49, blood pressure 98/54, respiratory rate 18, oxygen saturation 99% at room air. CBC slightly anemic 11.8 grams hgb, RBC 3.91, hct 34.8. MCH and MCV in the middle ground. RDW normal. electrolytes normal. EGFR 70. Fasting blood sugar 71. ALT 89 previously normal in previous determinations. Procalcitonin less than 0.05. Procalcitonin on admission was 0.09. KRISSY autoantibody less than 5. Ulceration is clean and healing. Continue Ertapenem as directed. MTDD
--- NOTE | 2016-07-31 08:16 | PN ---
DATE OF VISIT: 07/17/16 The patient today is alert with no distress. His dressing is changed three times a day as ordered. He has no specific complaints. VITAL SIGNS: At 5:47 p.m. showed a temperature of 97.5, pulse 59, blood pressure 132/65, respiratory rate 18, oxygen saturation 96 at room air. This patient had not been febrile ever since he was admitted under Transitional Care. LUNGS: Clear. HEART: Normal sinus rhythm. ABDOMEN: Unremarkable. CONDITION: Stable. This patient is still on Ertapenem 1 gram IV daily. He had not had any chemistries. [facility]
--- NOTE | 2016-07-31 08:20 | PN ---
DATE OF VISIT: 07/18/16 The patient's general condition is the same. He is alert, oriented times four, not dyspneic, nor tachypneic and afebrile. He is cheerful. He is walking around his room. I did ask to walk in the hallways. He denies any complaints or problems. His dressing again is changed three times a day and receiving Ertapenem. VITAL SIGNS: At 5:43 p.m., showed a temperature of 97.5, pulse 56, blood pressure 114/62, respiratory rate 18, oxygen saturation 99 at room air. CONDITION: Satisfactory. MTDD
--- NOTE | 2016-07-31 08:25 | PN ---
DATE OF VISIT: 07/19/16 The patient is alert, oriented. VITAL SIGNS: His temperature at 5:31 p.m. is 98.1, pulse 58, blood pressure 118/ 60, respiratory rate 16. He has no specific complaints. He denies any headache or visual disturbances. He denies any pain in the legs. This patient is known to have MS. He is off medication for his MS at this time. LUNGS: Clear. HEART: Normal sinus rhythm. ABDOMEN: Unremarkable. The patient's Insulin level fasting was measured on 07/15/2016 and was normal at 8.9. MTDD
--- NOTE | 2016-07-31 08:30 | PN ---
DATE OF VISIT: 07/20/16 The patient today is alert and ambulatory with no specific complaints. He is cheerful and he claims that he is doing well. His dressing has been changed without any events. There is no induration around the ulceration that had been packed. LUNGS: Clear. HEART: Normal sinus rhythm. ABDOMEN: Unremarkable. VITAL SIGNS: At 5:43 p.m. showed a temperature of 97.1, pulse 55, blood pressure 109/56, respiratory rate 16, oxygen saturation 94 at room air. The patient has no respiratory problems and no respiratory complaints. [facility]USJimmie
--- NOTE | 2016-07-31 10:51 | DS ---
PATIENT IDENTIFICATION: The patient was admitted to Transitional Care. HOSPITAL COURSE: 65 year old male was admitted to [facility] because of chills and fever with abscesses in the buttocks and coccyx. These abscesses were incised and drained and packed with Iodoform. The patient was found to have a positive blood culture and was initially given Vancomycin and Zosyn. This patient also was seen by an Infectious Disease specialist. The patient at the time of admission to this facility, [facility], was on Ertapenem 1 gram a day as ordered. The doctor entered in the discharge that he will be getting Ertapenem for a total of 28 days. His dressing also needs to be changed three times a day using Iodoform gauze 1/4 inch. This patient while in the hospital remained afebrile and her general appearance remained good. His blood pressure was stable and acceptable. The patient never had any complaints from day to day, except he claimed that he was feeling well. He has multiple sclerosis and is off of his medication. He did tell me that his symptoms are intermittent. He does not have any muscle aches at this time or muscle weakness. The patient was continued on the medications that he was getting at [facility]. The patient continued to remain stable and intermittent CBC and Chemistries showed no remarkable abnormalities. His A1C was slightly elevated at 6.7. His fasting Insulin is normal and his KRISSY 65 autoantibody is negative. The patient's dressing was changed before discharging from the hospital and the patient at the time of discharge in the midmorning was alert, ambulatory with no specific complaints. LUNGS: Clear. HEART: Normal sinus rhythm. VITAL SIGNS: Done at 4:29 a.m. showed a temperature of 98, pulse of 55, blood pressure 114/62, respiratory rate 20, oxygen saturation 100 at room air. I did see him before discharge. Again, his lungs are clear and the heart has normal sinus rhythm. ABDOMEN: Unremarkable. SKIN: No significant induration around the ulcerations or abscesses. This patient was advised that we would be glad to help him if there is anything that we can do. He will be continued on his Ertapenem that we certainly can give it to him in this hospital or if he needs a dressing at least once a day, that we can also do that. FINAL DIAGNOSES: 1. ABSCESS OF COCCYX, POST INCISION AND DRAINAGE 2. ABSCESS RIGHT AND LEFT BUTTOCKS, POST INCISION AND DRAINAGE, HEALING 3. HISTORY OF BACTEREMIA 4. HISTORY OF DIABETES MELLITUS INSULIN DEPENDENT 5. HISTORY OF CORONARY ARTERY DISEASE, STATUS POST BYPASS 6. HISTORY OF MULTIPLE SCLEROSIS 7. PERIPHERAL ARTERIAL DISEASE, ABSENT POSTERIOR TIBIAL PULSES 8. DEGENERATIVE JOINT DISEASE, FINGERS, HANDS AND KNEES 9. HYPERTENSION 10. MODERATE ANEMIA 11. HISTORY OF MALIGNANCY IN THE FAMILY INVOLVING FATHER, AND FOUR SIBLINGS PROGNOSIS: Guarded to good. MTDD
== END 2016-07-23 09:03 | disposition home or self-care (01) | DRG 603 ==
LOC: MEDSURG B 19:20
PROVIDERS: ADMIT General Practice; ATTEND General Practice
DX: L02.31 Cutaneous abscess of buttock (principal); R78.81 Bacteremia; E11.9 Type 2 diabetes mellitus without complications; I25.10 Atherosclerotic heart disease of native coronary artery without angina pectoris; I10 Essential (primary) hypertension; G35 Multiple sclerosis; I73.9 Peripheral vascular disease, unspecified; M19.042 Primary osteoarthritis, left hand; M19.041 Primary osteoarthritis, right hand; M17.0 Bilateral primary osteoarthritis of knee; D64.9 Anemia, unspecified; Z79.4 Long term (current) use of insulin; Z79.899 Other long term (current) drug therapy; Z95.1 Presence of aortocoronary bypass graft; Z80.9 Family history of malignant neoplasm, unspecified
CPT/HCPCS: 36415; 80053; 80061; 82962; 83036; 83519; 83525; 84145; 84681; 85025; 85651; 87081; 97802; 99223; 99231; 99232; 99238

== ENCOUNTER 2016-07-24 17:11 | Outpatient (CLI) ==
[2016-07-24] MEDS ORDERED: INVANZ 1 GM in SODIUM CHLORIDE 50 ML IV STA (17:43)
== END 2016-07-24 17:12 | disposition home or self-care (01) ==
LOC: LAB 17:11
PROVIDERS: ATTEND Internal Medicine Infectious Disease
DX: L02.31 Cutaneous abscess of buttock (principal)
CPT/HCPCS: 36415; 86140; 96365

== ENCOUNTER 2016-07-25 09:27 | Outpatient (CLI) ==
[2016-07-25] MEDS ORDERED: INVANZ 1 GM in SODIUM CHLORIDE 100 ML IV STA (10:03)
== END 2016-07-25 09:28 | disposition home or self-care (01) ==
LOC: OPMED 09:27
PROVIDERS: ATTEND Internal Medicine Infectious Disease
DX: L02.31 Cutaneous abscess of buttock (principal)
CPT/HCPCS: 96365

== ENCOUNTER 2016-07-26 09:01 | Outpatient (CLI) ==
[2016-07-26] MEDS ORDERED: INVANZ 1 GM in SODIUM CHLORIDE 50 ML IV STA (09:41)
== END 2016-07-26 09:02 | disposition home or self-care (01) ==
LOC: OPMED 09:01
PROVIDERS: ATTEND Internal Medicine Infectious Disease
DX: L02.31 Cutaneous abscess of buttock (principal)
CPT/HCPCS: 96365

== ENCOUNTER 2016-07-27 09:09 | Outpatient (CLI) ==
[2016-07-28] MEDS ORDERED: INVANZ 1 GM in SODIUM CHLORIDE 50 ML IV SCH (09:00)
== END 2016-07-27 09:10 | disposition home or self-care (01) ==
LOC: OPMED 09:09
PROVIDERS: ATTEND Internal Medicine Infectious Disease
DX: L02.31 Cutaneous abscess of buttock (principal)
CPT/HCPCS: 96365

== ENCOUNTER 2016-07-28 09:14 | Outpatient (CLI) ==
[2016-07-28] MEDS ORDERED: INVANZ 1 GM in SODIUM CHLORIDE 50 ML IV STA (09:20)
== END 2016-07-28 09:15 | disposition home or self-care (01) ==
LOC: OPMED 09:14
PROVIDERS: ATTEND Internal Medicine Infectious Disease
DX: L02.31 Cutaneous abscess of buttock (principal)
CPT/HCPCS: 96365

== ENCOUNTER 2016-07-29 10:19 | Outpatient (CLI) ==
[2016-07-29 10:40] LABS: BASOPHILS # (AUTO) 0.1 K/uL (0-0.2); EOSINOPHILS # (AUTO) 0.6 K/ul (0.0-0.7); EOSINOPHILS % (AUTO) 10.4 % (0.0-7.0); HEMATOCRIT 33.2 % (42.0-52.0); HEMOGLOBIN 11.4 g/dl (14.0-18.0); IMMATURE GRANULOCYTE % (AUTO) 0.3 % (0.0-5.0); LYMPHOCYTES # (AUTO) 1.5 K/uL (0.60-3.4); LYMPHOCYTES % (AUTO) 24.6 (10.0-50.0); MEAN CORPUSCULAR HEMOGLOBIN 30.3 pg (27.0-31.0); MEAN CORPUSCULAR HGB CONC 34.3 (31.8-35.4); MEAN CORPUSCULAR VOLUME 88.3 fl (80.0-94.0); MONOCYTES # (AUTO) 0.6 K/uL (0.4-2.0); MONOCYTES % (AUTO) 9.9 (0-10); NEUTROPHILS # (AUTO) 3.3 K/ul (2.0-6.9); NEUTROPHILS % (AUTO) 53.8; PLATELET COUNT 176 10^3/uL (140-440); RED BLOOD COUNT 3.76 10^6/ul (4.70-6.10); WHITE BLOOD COUNT 6.18 K/ul (4.2-10.2)
[2016-07-29 11:00] LABS: ALBUMIN 3.3 g/dL (3.4-5.0); ALBUMIN/GLOBULIN RATIO 0.89; ANION GAP 13.3; BILIRUBIN,TOTAL 0.27 mg/dL (0.00-1.20); CREATININE 0.88 mg/dL (0.60-1.10); POTASSIUM 4.3 mmol/L (3.5-5.1)
[2016-07-29 11:36] LABS: ERYTHROCYTE SEDIMENTATION RATE 45 mm/hr (0-15); ESR INTERNAL QC INTERNAL QC VALID
[2016-07-29 11:59] VITALS: BP 140/66; TEMP 97.8
[2016-07-29] MEDS ORDERED: INVANZ 1 GM in SODIUM CHLORIDE 50 ML IV ONE (12:00)
== END 2016-07-29 10:20 | disposition home or self-care (01) ==
LOC: OPMED 10:19
PROVIDERS: ATTEND Internal Medicine Infectious Disease
DX: L02.31 Cutaneous abscess of buttock (principal)
CPT/HCPCS: 36415; 80053; 85025; 85651; 86140; 96365; 96375

== ENCOUNTER 2016-07-30 09:09 | Outpatient (CLI) ==
[2016-07-30 09:27] VITALS: BP 110/70; TEMP 97.5
[2016-07-30] MEDS ORDERED: INVANZ 1 GM in SODIUM CHLORIDE 50 ML IV ONE (09:30)
== END 2016-07-30 09:10 | disposition home or self-care (01) ==
LOC: OPMED 09:09
PROVIDERS: ATTEND Internal Medicine Infectious Disease
DX: L02.31 Cutaneous abscess of buttock (principal)
CPT/HCPCS: 96365; 96375

== ENCOUNTER 2016-07-31 12:36 | Outpatient (CLI) ==
[2016-07-31 13:17] VITALS: BP 158/78; TEMP 97.9
[2016-07-31] MEDS ORDERED: INVANZ 1 GM in SODIUM CHLORIDE 50 ML IV STA (13:20)
== END 2016-07-31 12:37 | disposition home or self-care (01) ==
LOC: OPMED 12:36
PROVIDERS: ATTEND Internal Medicine Infectious Disease
DX: L02.31 Cutaneous abscess of buttock (principal)
CPT/HCPCS: 96365

== ENCOUNTER 2016-08-01 09:01 | Outpatient (CLI) ==
[2016-08-01] MEDS ORDERED: INVANZ 1 GM in SODIUM CHLORIDE 50 ML IV STA (09:14)
[2016-08-01 09:17] VITALS: BP 132/74; TEMP 97.9
== END 2016-08-01 09:02 | disposition home or self-care (01) ==
LOC: OPMED 09:01
PROVIDERS: ATTEND Internal Medicine Infectious Disease
DX: L02.31 Cutaneous abscess of buttock (principal)
CPT/HCPCS: 96365

== ENCOUNTER 2016-08-02 09:26 | Outpatient (CLI) ==
[2016-08-02] MEDS ORDERED: INVANZ 1 GM in SODIUM CHLORIDE 50 ML IV STA (09:31)
[2016-08-02 09:33] VITALS: BP 134/74; TEMP 98.1
== END 2016-08-02 09:27 | disposition home or self-care (01) ==
LOC: OPMED 09:26
PROVIDERS: ATTEND Internal Medicine Infectious Disease
DX: L02.31 Cutaneous abscess of buttock (principal)
CPT/HCPCS: 96365

== ENCOUNTER 2016-08-03 09:16 | Outpatient (CLI) ==
[2016-08-03] MEDS ORDERED: INVANZ 1 GM in SODIUM CHLORIDE 50 ML IV STA (09:43)
== END 2016-08-03 09:17 | disposition home or self-care (01) ==
LOC: OPMED 09:16
PROVIDERS: ATTEND Internal Medicine Infectious Disease
DX: L02.31 Cutaneous abscess of buttock (principal)
CPT/HCPCS: 96365

== ENCOUNTER 2016-08-04 09:14 | Outpatient (CLI) ==
[~2016-08-04 09:14] MED LIST: INVANZ 1 GM in SODIUM CHLORIDE 50 ML IV ONE
== END 2016-08-04 09:15 | disposition home or self-care (01) ==
LOC: OPMED 09:14
PROVIDERS: ATTEND Internal Medicine Infectious Disease
DX: L02.31 Cutaneous abscess of buttock (principal)
CPT/HCPCS: 96365; 96375

== ENCOUNTER 2016-08-05 09:00 | Outpatient (CLI) ==
[2016-08-05] MEDS ORDERED: INVANZ 1 GM in SODIUM CHLORIDE 50 ML IV STA (09:07)
[2016-08-05 10:51] LABS: BASOPHILS # (AUTO) 0.1 K/uL (0-0.2); BASOPHILS % (AUTO) 0.8 % (0.0-3.0); EOSINOPHILS # (AUTO) 0.4 K/ul (0.0-0.7); EOSINOPHILS % (AUTO) 5.6 % (0.0-7.0); HEMATOCRIT 31.7 % (42.0-52.0); HEMOGLOBIN 11.2 g/dl (14.0-18.0); IMMATURE GRANULOCYTE % (AUTO) 0.4 % (0.0-5.0); LYMPHOCYTES # (AUTO) 1.7 K/uL (0.60-3.4); MEAN CORPUSCULAR HEMOGLOBIN 30.6 pg (27.0-31.0); MEAN CORPUSCULAR HGB CONC 35.3 (31.8-35.4); MEAN CORPUSCULAR VOLUME 86.6 fl (80.0-94.0); MONOCYTES # (AUTO) 0.7 K/uL (0.4-2.0); MONOCYTES % (AUTO) 9.1 (0-10); NEUTROPHILS # (AUTO) 4.7 K/ul (2.0-6.9); NEUTROPHILS % (AUTO) 62.1; PLATELET COUNT 201 10^3/uL (140-440); RED BLOOD COUNT 3.66 10^6/ul (4.70-6.10); WHITE BLOOD COUNT 7.62 K/ul (4.2-10.2)
[2016-08-05 11:10] LABS: ALBUMIN 3.2 g/dL (3.4-5.0); ANION GAP 13.1; BILIRUBIN,TOTAL 0.52 mg/dL (0.00-1.20); BUN/CREATININE RATIO 19.79; CALCIUM 9.2 mg/dL (8.2-10.2); CREATININE 0.96 mg/dL (0.60-1.10); POTASSIUM 4.1 mmol/L (3.5-5.1); TOTAL PROTEIN 6.4 g/dL (5.8-8.1)
[2016-08-05 11:37] LABS: ERYTHROCYTE SEDIMENTATION RATE 26 mm/hr (0-15); ESR INTERNAL QC INTERNAL QC VALID
== END 2016-08-05 09:01 | disposition home or self-care (01) ==
LOC: OPMED 09:00
PROVIDERS: ATTEND Internal Medicine Infectious Disease
DX: L02.31 Cutaneous abscess of buttock (principal)
CPT/HCPCS: 36415; 80053; 85025; 85651; 86140; 96365; 99211

== ENCOUNTER 2016-08-06 09:11 | Outpatient (CLI) ==
[2016-08-06 09:21] VITALS: BP 118/72; TEMP 98
[2016-08-06] MEDS ORDERED: INVANZ 1 GM in SODIUM CHLORIDE 50 ML IV STA (09:22)
== END 2016-08-06 09:12 | disposition home or self-care (01) ==
LOC: OPMED 09:11
PROVIDERS: ATTEND Internal Medicine Infectious Disease
DX: L02.31 Cutaneous abscess of buttock (principal)
CPT/HCPCS: 96365; 96375

== ENCOUNTER 2016-08-07 09:20 | Outpatient (CLI) ==
[2016-08-07] MEDS ORDERED: INVANZ 1 GM in SODIUM CHLORIDE 50 ML IV STA (09:36)
== END 2016-08-07 09:21 | disposition home or self-care (01) ==
LOC: OPMED 09:20
PROVIDERS: ATTEND Internal Medicine Infectious Disease
DX: L02.31 Cutaneous abscess of buttock (principal)
CPT/HCPCS: 96365; 96375

== ENCOUNTER 2016-08-08 08:56 | Outpatient (CLI) ==
[2016-08-08] MEDS ORDERED: INVANZ 1 GM in SODIUM CHLORIDE 50 ML IV STA (09:27)
== END 2016-08-08 08:57 | disposition home or self-care (01) ==
LOC: OPMED 08:56
PROVIDERS: ATTEND Internal Medicine Infectious Disease
DX: L02.31 Cutaneous abscess of buttock (principal)
CPT/HCPCS: 96365; 96375

== ENCOUNTER 2016-08-09 14:24 | Outpatient (CLI) ==
[2016-08-09 16:25] VITALS: BP 166/64; TEMP 98.2
== END 2016-08-09 14:25 | disposition home or self-care (01) ==
LOC: OPMED 14:24
PROVIDERS: ATTEND Internal Medicine Infectious Disease
DX: L02.31 Cutaneous abscess of buttock (principal)
CPT/HCPCS: 99211

== ENCOUNTER 2016-08-10 08:34 | Outpatient (CLI) ==
[2016-08-10 17:52] VITALS: BP 166/70; TEMP 97
== END 2016-08-10 08:35 | disposition home or self-care (01) ==
LOC: OPMED 08:34
PROVIDERS: ATTEND Internal Medicine Infectious Disease
DX: L02.31 Cutaneous abscess of buttock (principal)
CPT/HCPCS: 99211

== ENCOUNTER 2016-08-11 12:57 | Outpatient (CLI) ==
[2016-08-11 13:34] VITALS: BP 118/68; TEMP 97.8
== END 2016-08-11 13:25 | disposition home or self-care (01) ==
LOC: OUTPT 12:57
PROVIDERS: ATTEND Internal Medicine Infectious Disease
DX: L02.31 Cutaneous abscess of buttock (principal); Z48.00 Encounter for change or removal of nonsurgical wound dressing
CPT/HCPCS: 99211

== ENCOUNTER 2016-08-12 09:38 | Outpatient (CLI) ==
[2016-08-12 10:04] VITALS: BP 150/68; TEMP 96.9
== END 2016-08-12 09:39 | disposition home or self-care (01) ==
LOC: OUTPT 09:38
PROVIDERS: ATTEND Family Medicine
DX: Z48.00 Encounter for change or removal of nonsurgical wound dressing (principal)
CPT/HCPCS: 99211

== ENCOUNTER 2016-08-13 09:21 | Outpatient (CLI) ==
[2016-08-13 09:41] VITALS: BP 149/69
== END 2016-08-13 09:22 | disposition home or self-care (01) ==
LOC: OUTPT 09:21
PROVIDERS: ATTEND Internal Medicine Infectious Disease
DX: Z48.00 Encounter for change or removal of nonsurgical wound dressing (principal)
CPT/HCPCS: 99211

== ENCOUNTER 2016-08-14 08:46 | Outpatient (CLI) | END 2016-08-14 08:47 | disposition home or self-care (01) | LOC: OUTPT 08:46 | PROVIDERS: ATTEND Internal Medicine Infectious Disease | DX: Z48.00 Encounter for change or removal of nonsurgical wound dressing (principal) | CPT/HCPCS: 99211 ==

== ENCOUNTER 2016-08-15 09:15 | Outpatient (CLI) | END 2016-08-15 09:16 | disposition home or self-care (01) | LOC: OUTPT 09:15 | PROVIDERS: ATTEND Family Medicine | DX: Z48.00 Encounter for change or removal of nonsurgical wound dressing (principal) | CPT/HCPCS: 99211 ==

== ENCOUNTER 2016-08-16 09:10 | Outpatient (CLI) | END 2016-08-16 09:11 | disposition home or self-care (01) | LOC: OUTPT 09:10 | PROVIDERS: ATTEND Family Medicine | DX: Z48.00 Encounter for change or removal of nonsurgical wound dressing (principal) ==

== ENCOUNTER 2016-08-17 09:11 | Outpatient (CLI) ==
[2016-08-17 09:32] VITALS: BP 152/78; TEMP 98
== END 2016-08-17 09:47 | disposition home or self-care (01) ==
LOC: OPMED 09:11
PROVIDERS: ATTEND Internal Medicine Infectious Disease
DX: Z48.00 Encounter for change or removal of nonsurgical wound dressing (principal)
CPT/HCPCS: 99211

== ENCOUNTER 2016-08-18 14:02 | Outpatient (CLI) | END 2016-08-18 14:03 | disposition home or self-care (01) | LOC: OPMED 14:02 | PROVIDERS: ATTEND Internal Medicine Infectious Disease | DX: Z48.00 Encounter for change or removal of nonsurgical wound dressing (principal) | CPT/HCPCS: 99211 ==

== ENCOUNTER 2016-08-19 09:12 | Outpatient (CLI) ==
[2016-08-19 09:41] VITALS: BP 148/64; TEMP 98.1
== END 2016-08-19 09:13 | disposition home or self-care (01) ==
LOC: OUTPT 09:12
PROVIDERS: ATTEND Family Medicine
DX: Z48.00 Encounter for change or removal of nonsurgical wound dressing (principal)
CPT/HCPCS: 99211

== ENCOUNTER 2016-08-20 09:15 | Outpatient (CLI) | END 2016-08-20 09:16 | disposition home or self-care (01) | LOC: OUTPT 09:15 | PROVIDERS: ATTEND Family Medicine | DX: Z48.00 Encounter for change or removal of nonsurgical wound dressing (principal) | CPT/HCPCS: 99211 ==

== ENCOUNTER 2016-08-21 09:28 | Outpatient (CLI) ==
[2016-08-21 09:44] VITALS: BP 160/67; TEMP 97.7
== END 2016-08-21 09:29 | disposition home or self-care (01) ==
LOC: OPMED 09:28
PROVIDERS: ATTEND Family Medicine
DX: Z48.00 Encounter for change or removal of nonsurgical wound dressing (principal)
CPT/HCPCS: 99211

== ENCOUNTER 2016-08-22 09:23 | Outpatient (CLI) ==
[2016-08-22 09:43] VITALS: BP 134/72; TEMP 97.8
== END 2016-08-22 09:24 | disposition home or self-care (01) ==
LOC: OUTPT 09:23
PROVIDERS: ATTEND Family Medicine
DX: Z48.00 Encounter for change or removal of nonsurgical wound dressing (principal)
CPT/HCPCS: 99211

== ENCOUNTER 2016-08-23 09:17 | Outpatient (CLI) ==
[2016-08-23 09:43] VITALS: BP 169/68; TEMP 97.9
== END 2016-08-23 09:18 | disposition home or self-care (01) ==
LOC: OUTPT 09:17
PROVIDERS: ATTEND Family Medicine
DX: Z48.00 Encounter for change or removal of nonsurgical wound dressing (principal)
CPT/HCPCS: 99211

== ENCOUNTER 2016-08-24 09:23 | Outpatient (CLI) | END 2016-08-24 09:24 | disposition home or self-care (01) | LOC: OPMED 09:23 | PROVIDERS: ATTEND Internal Medicine Infectious Disease | DX: Z48.00 Encounter for change or removal of nonsurgical wound dressing (principal) | CPT/HCPCS: 99211 ==

== ENCOUNTER 2016-08-25 13:23 | Outpatient (CLI) | END 2016-08-25 13:24 | disposition home or self-care (01) | LOC: OPMED 13:23 | PROVIDERS: ATTEND Internal Medicine Infectious Disease | DX: Z48.00 Encounter for change or removal of nonsurgical wound dressing (principal) | CPT/HCPCS: 99211 ==

== ENCOUNTER 2016-08-26 09:21 | Outpatient (CLI) | END 2016-08-26 09:22 | disposition home or self-care (01) | LOC: OPMED 09:21 | PROVIDERS: ATTEND Family Medicine | DX: Z48.00 Encounter for change or removal of nonsurgical wound dressing (principal) | CPT/HCPCS: 99211 ==

== ENCOUNTER 2016-08-27 09:01 | Outpatient (CLI) ==
[2016-08-27 09:16] VITALS: BP 135/64; TEMP 97.5
== END 2016-08-27 09:02 | disposition home or self-care (01) ==
LOC: OPMED 09:01
PROVIDERS: ATTEND Family Medicine
DX: Z48.00 Encounter for change or removal of nonsurgical wound dressing (principal)
CPT/HCPCS: 99211